=== PATIENT | male | born 1975 | race Caucasian/White ===

== ENCOUNTER 2019-11-21 17:44 | Observation (INO) | payer OTHER ==
[~2019-11-21] VITALS: Ht 182.9 cm; Wt 108.2 kg
[2019-11-21 22:51] VITALS: BP 140/95
[2019-11-21] MEDS ORDERED: NS 1,000 ML IV SCH ×2 (23:13)
[2019-11-21] MEDS ORDERED: ONDANSETRON 4MG/2ML VIAL (J2405) IV PRN (23:15)
--- NOTE | 2019-11-21 23:49 | HPEPDOC ---
[facility] Medical History & Physical Date of Admission Nov 21, 2019 Date of Service: Nov 21, 2019 Attending Physician: FELIPA LOYOLA MD History and Physical CHIEF COMPLAINT: Right flank pain, right UPJ calculus HISTORY OF PRESENT ILLNESS: PAST MEDICAL HISTORY 1. Renal calculus PAST SURGICAL HISTORY: 1. Umbiical hernia repair 2. Right inguinal hernia repair 3. . SOCIAL HISTORY: Marital status: Unknown Resides in: Children: Employment: Tobacco use: ETOH: None Illicit drug use: None Tattoos done unprofessionally: . IV drug use: Other relevant social factors: FAMILY HISTORY: Father: Mother: Siblings: Children: Hereditary Diseases: Unexpected deaths due to medical reasons: ALLERGIES: Please see below. REVIEW OF SYSTEMS: CONSTITUTIONAL: Normal HEENT: WNL CARDIOVASCULAR: WNL RESPIRATORY: WNL GASTROINTESTINAL: WNL GENITOURINARY: Renal calculi SKIN: Normal MUSCULOSKELETAL: Intact NEUROLOGICAL: . PSYCHIATRIC: . ENDOCRINE: . HEMATOLOGIC/LYMPHATIC: . HOME MEDICATIONS: Please see below. PHYSICAL EXAMINATION: VITAL SIGNS: Temperature , pulse , respiratory rate , blood pressure , pulse oximetry % on room air. GENERAL APPEARANCE: Comfortable HEENT: CARLOS CARDIOVASCULAR: . LUNGS: CLEAR ABDOMEN: Flat, Benign MUSCULOSKELETAL: Normal EXTREMITIES: FROM NEUROLOGICAL: Intact PSYCHIATRIC: . LABORATORY DATA: See below. IMAGING: CT at [facility] reports a right 1.0 x 0.5 cm right UPJ calculus MICROBIOLOGY: Please see below. ASSESSMENT: Right UPJ calculus . PLAN: 1. Cysto with right ureteroscopic laser lithotripsy alternative treatments including ESWL were discussed along with advantages, disadvantages, possible complications including, but not limited to, infection, pain perforation, stricture formation, bleeding and damage to ureter and/or kidney. Patient expressed understanding and agreed to the procedure. Vital Signs Vital Signs Date Time Temp Pulse Resp B/P (MAP) Pulse Ox O2 Delivery O2 Flow Rate FiO2 11/21/19 22:51 97.6 87 20 140/95 (110) 97 Room Air Home Medications No Active Prescriptions or Reported Meds Allergies Coded Allergies: Cat Dander (Verified Allergy, Unknown, 11/21/19) Dog Dander (Verified Allergy, Unknown, 11/21/19) No Known Allergies (Verified Allergy, Unknown, 11/21/19) A-FIB/CHADSVASC A-FIB History Current/History of A-Fib/PAF?: No Current PO Anticoag Therapy: No FELIPA LOYOLA MD Nov 21, 2019 23:49
[2019-11-21] MEDS: NORCO, ANEXSIA 5/325MG TABLET (HYDROcodone/ACETAMINOPHEN) PO PRN (23:55)
[2019-11-22] MEDS ORDERED: ceFAZolin SOD 2 GM in IV 1 EA IV ONE (06:00)
[2019-11-22] MEDS: NORCO, ANEXSIA 5/325MG TABLET (HYDROcodone/ACETAMINOPHEN) PO PRN (06:49)
[2019-11-22 06:51] VITALS: BP 153/110
[2019-11-22 07:13] LABS: APPEARANCE, URINE CLEAR (CLEAR); BACTERIA, URINE AUTO NEGATIVE (NEGATIVE); BILIRUBIN, URINE AUTO NEGATIVE (NEGATIVE); BLOOD, URINE BLOOD NEGATIVE (NEGATIVE); COLOR, URINE YELLOW (YELLOW); GLUCOSE, URINE (UA) AUTO 1+ mg/dL (NEGATIVE); KETONE, URINE AUTO NEGATIVE (NEGATIVE); LEUKOCYTE ESTERASE, URINE AUTO NEGATIVE (NEGATIVE); MUCUS, URINE SMALL (NEGATIVE); NITRITE, URINE AUTO NEGATIVE (NEGATIVE); PROTEIN, URINE AUTO 1+ mg/dL (NEGATIVE); RBC, URINE AUTO 11 /HPF (0-3); SPECIFIC GRAVITY URINE AUTO 1.034 (1.002-1.035); SQUAMOUS EPITHELIAL CELL UR AU 0 /HPF (0-6); UROBILINOGEN, URINE AUTO 0.2 mg/dL (0.0-2.0); WBC, URINE AUTO 3 /HPF (0-3)
[2019-11-22 07:16] VITALS: BP 138/82
[2019-11-22 08:07] VITALS: BP 133/93
--- NOTE | 2019-11-22 09:04 | REP ---
KUB: Two views. History: Renal calculus. Right-sided pain. No comparison imaging available. Findings: The patient is status post lumbosacral junction spine fusion. There is relatively low-density contrast throughout the colon suggesting previous TO CT contrast administration. There are air-filled loops of small bowel to the left of midline consistent with ileus. There is contrast opacification of the collecting system of the right kidney and an obstructive nephrogram is seen on the right. There appears to be a proximal ureteral stone 6.5 mm in greatest diameter on the right causing hydronephrosis and obstructive nephrogram. There is a phlebolith in the right pelvis. No other urinary tract calculus is seen. Impression: High-grade obstructive nephrogram on the right apparently due to a 6.5 mm proximal ureteral stone. Residual p.o. CT contrast in the colon. Status post spine fusion Electronically Signed by Arnie Soliman MD 11/22/2019 08:56 A
--- NOTE | 2019-11-22 09:19 | IPNPDOC ---
Subjective Review oF Systems Chief Complaint The patient is a 43-year-old male admitted with a reason for visit of Left Distal Stone With Obstruction. General: Reports: Normal Appetite; Denies: Fatigue, Malaise Constitutional: Denies: Fever, Chills, Sweats, Weakness, Malaise Eyes: Denies: Pain, Vision change ENT: Denies: Head Aches, Sore Throat, Epistaxis Skin: Denies: Rash, Lesions, Breakdown, Nail Changes Pulmonary: Denies: Dyspnea, Cough Cardiovascular: Denies Chest Pain, Denies Palpitations Gastrointestinal: Denies: Nausea, Vomiting, Abdominal Pain Genitourinary: Denies: Dysuria, Frequency, Incontinence, Hematuria Musculoskeletal: Denies: Neck Pain, Back Pain Objective Physical Examination Eye Exam: PERRLA, Conjunctiva & lids normal, EOMI; No: Sclera icteric ENT EXAM: No: Atraumatic, Mucous membr. moist/pink, Pharynx Normal, Tongue Midline, Pharyngeal Edema, Nares Patent, Tympanic Membranes Normal, Ext Auditory Canal Nml, Pinna Normal, Other ENT Neck Exam: Supple; No: JVD, thyromegaly Chest Exam: Clear to auscultation, Normal air movement Heart Exam: Positive: Rate Normal, Regular Rhythm, Normal S1, Normal S2; Negative: Murmurs, Rubs Telemetry: No significant arrhythmia ABDOMEN EXAM: BS Hypoactive Male Exam: Normal Genital Exam Extremity Exam: Tenderness; No: Clubbing, Cyanosis, Edema Skin Exam: Nl turgor and temperature; No: Rash, Breakdown Vital Signs/I&O Vital Signs Date Time Temp Pulse Resp B/P (MAP) Pulse Ox O2 Delivery O2 Flow Rate FiO2 11/22/19 08:07 99.5 76 16 133/93 (106) 95 Room Air I&O- Last 24 Hours up to 6 AM 11/22/19 06:00 Intake Total 0 ml Output Total 250 ml Balance -250 ml Laboratory Data Labs 24H Laboratory Tests 2 11/22/19 06:51: Urine Color YELLOW, Urine Appearance CLEAR, Urine pH 5.0, Urine Specific [place] 1.034, Urine Protein 1+H, Urine Glucose (Auto)(UA) 1+H, Urine Ketones (Auto) NEGATIVE, Urine Blood NEGATIVE, Urine Nitrite NEGATIVE, Urine Bilirubin NEGATIVE, Urine Urobilinogen 0.2, Urine Leukocyte Esterase (Auto) NEGATIVE, Urine WBC (Auto) 3, Urine RBC (Auto) 11H, Urine Hyaline Casts (Auto) 0, Urine Bacteria (Auto) NEGATIVE, Urine Squamous Epithelial Cells 0, Urine Mucus (Auto) SMALL, Urine Sperm (Auto) Microbiology Microbiology 11/22/19 Urine Culture, Received Pending RAD Interpretation STUDY: KUB RAD Interpretation: Other Result Comments: (Right kidney shows retained contrast in renal pelvis collecting system with obstructing proximal ureteral calculus.) Assessment/Plan Date Seen The patient was seen on 11/22/19. Patient Summary Complete obstruction of right kidney with a prox ureteral calculus. Plan/VTE VTE Prophylaxis Ordered?: Yes Plan Pt will need to have a ureteroscopic laser lithotripsy of proximal ureteral calculus today FELIPA LOYOLA MD Nov 22, 2019 09:19
[2019-11-22] MEDS ORDERED: CONRAY-60 60% 50ML VIAL (Q9961) As Ordered ONE ×2 (10:13→11:14)
[2019-11-22] MEDS ORDERED: MIDAZOLAM INJ 2 MG/2 ML VIAL (J2250) As Ordered ONE (11:14)
[2019-11-22] MEDS ORDERED: propofoL 200 MG/20 ML VIAL As Ordered ONE ×2 (11:14→12:09)
[2019-11-22] MEDS ORDERED: LIDOCAINE 2% INJ 100 MG/5 ML SDV (FOR ANES.) As Ordered ONE (11:14)
[2019-11-22] MEDS ORDERED: fentaNYL 100 MCG/2 ML INJECTION (J3010) As Ordered ONE (11:15)
[2019-11-22] MEDS ORDERED: ceFAZolin 2 GM/D5W 50 ML IV BAG (J0690 PER 500MG) As Ordered ONE (11:19)
[2019-11-22] MEDS ORDERED: dexameTHASONE 4 MG/ML 1ML VIAL (J1100 PER 1MG) As Ordered ONE (12:06)
[2019-11-22] MEDS ORDERED: ONDANSETRON 4MG/2ML VIAL (J2405) As Ordered ONE (12:06)
[2019-11-22] MEDS ORDERED: ePHEDrine SULFATE 25 MG/5 ML(5MG/ML) SYRINGE As Ordered ONE (12:06)
--- NOTE | 2019-11-22 12:45 | REP ---
RETROGRADE PYELOGRAM: Single view. HISTORY: Stent placement. 35 seconds of fluoroscopy time is reported. FINDINGS: A single last image hold fluoroscopic spot radiograph of the right abdomen documents a stent in place in the right ureter. Electronically Signed by Arnie Soliman MD 11/22/2019 02:31 P
[2019-11-22 13:00] VITALS: BP 141/90
[2019-11-22] MEDS ORDERED: ONDANSETRON 4MG/2ML VIAL (J2405) IV PRN (13:00)
[2019-11-22] MEDS ORDERED: METOCLOPRAMIDE INJ 10MG/2ML VIAL (J2765) IV PRN (13:00)
[2019-11-22] MEDS ORDERED: IBUPROFEN 600 MG TAB PO PRN (13:00)
[2019-11-22] MEDS ORDERED: fentaNYL 100 MCG/2 ML INJECTION (J3010) IV PRN (13:00)
[2019-11-22] MEDS ORDERED: oxyCODONE 5MG TAB PO PRN (13:00)
[2019-11-22] MEDS ORDERED: LR 1,000 ML IV SCH (13:00)
[2019-11-22] MEDS ORDERED: diphenhydrAMINE INJ 50MG/ML VIAL (J1200) IV PRN (13:00)
--- NOTE | 2019-11-22 14:11 | POST-OPPD ---
Postoperative Procedure Note Date Of Procedure: Nov 22, 2019 Time Of Procedure: 11:15 PREOPERATIVE DIAGNOSIS: Obstructing right ureteral calculus POSTOPERATIVE DIAGNOSIS: Same INDICATION FOR OPERATION: The patient was transferred here from [facility] for an obstructing right ureteral calculus. KUB was performed this morning showing the patient continues to have addressed in the collecting system nephro brought to the operating room for treatment. The treatment options were discussed including stent insertion with ESWL or ureteroscopic laser lithotripsy. Because of his current incarceration situation. The patient wished to have ureteroscopic treatment performed. The alternatives, advantages, disadvantages and possible complications were discussed including, but not limited to, infection, pain, perforation, strictures, bleeding and possible damage to the ureter or kidney. Patient requested to proceed with ureteroscopic laser treatment. PROCEDURE: Cystoscopy, right retrograde pyelogram, ureteroscopy and stent insertion SURGEON: Mauro Fuentes M.D. BATTERY REPAIRER: None ANESTHESIA: Gen. DESCRIPTION OF OPERATION: The patient was placed on the table in the supine position and given general anesthesia. He then placed in lithotomy position, prepped with Betadine paint and draped in aseptic manner. Timeout was then performed. A graft a 22 Iraqi cystoscope was inserted into the meatus and advanced under direct vision of a 30 lens to the bladder. The bladder mucosa was seen to be normal and the ureteral orifices were in the normal anatomic position. Catheterized with a 5 Iraqi open-ended catheter and retrograde injection of Conray showed the patient had a proximal right ureter. A wire guide was able to be manipulated around the stone into the renal pelvis. This is followed by a second working wire and the cystoscope was removed. If the flexible cystoscope was then advanced over the working wire up to the junction of the distal and middle thirds of the ureter. At this point scope could not be advanced further because of a tightening of the ureter. The ureteroscope was removed leaving the working wire in place. A tunnel dilator was then gently advanced over this wire. Again, resistance was met about the area of the middle and distal thirds of the ureter. The obturator was then removed from the tunnel and the scope was advanced through the tunnel. A small tear was then noted in the ureter, so the decision was made to terminate the procedure and leave a ureteral stent in place. The tunnel was removed along with the ureteroscope and the cystoscope was then backloaded over the safety wire. A 6 Iraqi double-J stent was passed over this wire and curled well in the renal pelvis and in the bladder when the wire was removed. The bladder was then drained, and the cystoscope was removed. Rectal examination showed a 25 g, benign prostate. The patient was then awakened and sent to the recovery area in stable condition SPECIMENS: None ESTIMATED BLOOD LOSS: Less than 10 mL REPLACED: None DRAINS: 6 Iraqi double-J stent FINDINGS: Proximal right ureteral calculus and ureteral stricture COMPLICATIONS: Ureteral tear POSTOPERATIVE CONDITION: Stable and comfortable Patient should leave the ureteral stent in place for 68 weeks followed by a contrast study prior to removal of the stent. MAURO FUENTES MD Nov 22, 2019 14:11
== END 2019-11-22 14:46 ==
LOC: M MS5PR 22:12 → EDBD 22:12 → PREINTOOBSV 22:35
PROVIDERS: ADMIT Urology; ATTEND Urology
DX: N20.1 Calculus of ureter (principal); N13.5 Crossing vessel and stricture of ureter without hydronephrosis; N99.81 Other intraoperative complications of genitourinary system; Z79.899 Other long term (current) drug therapy; Z79.2 Long term (current) use of antibiotics; Z79.891 Long term (current) use of opiate analgesic; F17.200 Nicotine dependence, unspecified, uncomplicated; Z87.442 Personal history of urinary calculi
CPT/HCPCS: 52332; 74018; 74420; 81001; 87086; C1769; C2617; J0690; J1100; J2250; J2405; J3010; Q9961